=== PATIENT | female | born 1960 | race Caucasian/White ===

== ENCOUNTER 2016-10-21 17:35 | Emergency (ER) | payer MEDICARE, MEDICAID ==
[~2016-10-21] VITALS: Ht 162.6 cm; Wt 81.2 kg
[~2016-10-21 17:35] MED LIST: ATENOLOL50 M1 PO; FEROSUL325 M1 PO; NAPROSYN500 MG PO; SIMVASTATIN20 M1 PO; [UNRECOGNIZED DRUG - OTHER]
[2016-10-21 17:38] VITALS: BP 133/87
--- NOTE | 2016-10-21 19:19 | NUR ---
PT TAKEN TO BED 3
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
--- NOTE | 2016-10-21 20:06 | NUR ---
X-Ray at bedside.
[2016-10-21] MEDS ORDERED: KETOROLAC 60 MG/2 ML VIAL IM ONE (20:45)
[2016-10-21 21:13] VITALS: BP 133/87
--- NOTE | 2016-10-21 21:13 | NUR ---
Patient discharged with v/s stable. Written and verbal after care instructions given and explained. Patient verbalized understanding. Ambulatory with to home. All questions addressed prior to discharge. Advised to follow up with PMD. DISCHARGED PER DR. MARSH. WITH RX NAPROSYN.
== END 2016-10-21 21:13 | disposition home or self-care (01) ==
LOC: MED 17:35
DX: S83.91XA Sprain of unspecified site of right knee, initial encounter (principal); S93.401A Sprain of unspecified ligament of right ankle, initial encounter; I10 Essential (primary) hypertension; J45.909 Unspecified asthma, uncomplicated; W18.30XA Fall on same level, unspecified, initial encounter; Y93.89 Activity, other specified; Y92.029 Unspecified place in mobile home as the place of occurrence of the external cause; Y99.8 Other external cause status; Z88.5 Allergy status to narcotic agent
CPT/HCPCS: 73562; 73610; 96372; 99284; J1885; Q0092

== ENCOUNTER 2017-10-14 21:02 | Emergency (ER) | payer MEDICARE, MEDICAID ==
[~2017-10-14] VITALS: Ht 162.6 cm; Wt 82.8 kg
[~2017-10-14 21:02] MED LIST changes: +ATEN50TA2 PO; -ATENOLOL50 M1 PO; -FEROSUL325 M1 PO; -NAPROSYN500 MG PO; +SIMV20TA6 PO; -SIMVASTATIN20 M1 PO; -[UNRECOGNIZED DRUG - OTHER]
[2017-10-14 21:23] VITALS: BP 121/65
--- NOTE | 2017-10-15 00:02 | NUR ---
PATIENT LEFT WITHOUT BEING SEEN BY DR. PABON. NO FURTHER CARE PROVIDED FOR PATIENT.
== END 2017-10-15 00:02 | disposition left against medical advice (07) ==
LOC: MED 21:02
DX: M79.606 Pain in leg, unspecified (principal); Z53.21 Procedure and treatment not carried out due to patient leaving prior to being seen by health care provider
CPT/HCPCS: C1758

== ENCOUNTER 2018-07-17 19:07 | Emergency (ER) | payer MEDICARE, MEDICAID ==
[~2018-07-17] VITALS: Ht 162.6 cm; Wt 81.6 kg
[2018-07-17 19:20] VITALS: BP 129/85
[2018-07-17 19:24] VITALS: BP 129/85
== END 2018-07-17 20:45 | disposition left against medical advice (07) ==
LOC: MED 19:07
DX: M25.562 Pain in left knee (principal); M54.9 Dorsalgia, unspecified; Z53.21 Procedure and treatment not carried out due to patient leaving prior to being seen by health care provider

== ENCOUNTER 2018-07-24 20:19 | Emergency (ER) | payer MEDICARE, MEDICAID ==
[~2018-07-24] VITALS: Ht 162.6 cm; Wt 81.6 kg
[2018-07-24 20:27] VITALS: BP 123/78
[2018-07-24] MEDS: fentaNYL 0.05 MG/ML VIAL IVP ONE (21:57)
[2018-07-24] MEDS: ONDANSETRON 4 MG/2 ML VIAL IVP ONE (21:58)
[2018-07-24 23:01] VITALS: BP 116/75
== END 2018-07-24 23:01 | disposition home or self-care (01) ==
LOC: MED 20:19
DX: G89.29 Other chronic pain (principal); M54.9 Dorsalgia, unspecified; R11.2 Nausea with vomiting, unspecified; J45.909 Unspecified asthma, uncomplicated; I10 Essential (primary) hypertension; Z88.5 Allergy status to narcotic agent; Z79.51 Long term (current) use of inhaled steroids
CPT/HCPCS: 81002; 96374; 99283; J3010; J2405

== ENCOUNTER 2018-11-15 17:01 | Emergency (ER) | payer MEDICARE, MEDICAID ==
[~2018-11-15] VITALS: Ht 162.6 cm; Wt 79.4 kg
[2018-11-15 17:49] VITALS: BP 115/82
--- NOTE | 2018-11-15 18:10 | NUR ---
BIB SELF WITH C/O PAINFUL BURNING URINATION X 2 DAYS WITH LOWER ABDOMINAL PAIN RADIATING TO THE LT LOWER BACK AND RT PRINEAL PIMPLE PAIN. PER PT UNABLE TO SLEEP D/T ANXIETY . DENIES N/V/D; SKIN IS PINK/WARM/DRY; AAOX4 WITH EVEN AND STEADY GAIT; LUNGS CLEAR BL; HR EVEN AND REGULAR; PT DENIES ANY FEVER, CP, SOB, OR COUGH AT THIS TIME; PATIENT STATES PAIN OF 10/10 AT THIS TIME; VSS; PATIENT POSITIONED FOR COMFORT; HOB ELEVATED; BEDRAILS UP X2; BED DOWN. ER MD MADE AWARE OF PT STATUS.
[2018-11-15 18:26] LABS: APPEARANCE,URINE CLEAR (CLEAR); BILIRUBIN,URINE NEGATIVE (NEGATIVE); BLOOD, URINE 1+ (NEGATIVE); COLOR,URINE YELLOW (YELLOW); LEUKOCYTE ESTERASE ,URINE NEGATIVE (NEGATIVE); NITRITE, URINE NEGATIVE (NEGATIVE); PH,URINE 7.5 (5.0-9.0); UGLUCOSE NEGATIVE (NEGATIVE)
[2018-11-15 18:29] LABS: WBC,URINE 0-5 /HPF (0-5)
--- NOTE | 2018-11-15 19:12 | NUR ---
ENDORSED PT TO PM NURSE .
[2018-11-15 20:48] VITALS: BP 133/66
--- NOTE | 2018-11-15 20:48 | NUR ---
Patient discharged with v/s stable. Written and verbal after care instructions given and explained. Patient alert, oriented and verbalized understanding of instructions. Ambulatory with steady gait. All questions addressed prior to discharge. ID band removed. Patient advised to follow up with PMD. Rx of AMBIEN, ATENOLOL, SIMVASTATIN, BACTRIM, MOTRIN given. Patient educated on indication of medication including possible reaction and side effects. Opportunity to ask questions provided and answered.
== END 2018-11-15 20:48 | disposition home or self-care (01) ==
LOC: MED 17:01
DX: N39.0 Urinary tract infection, site not specified (principal); J45.909 Unspecified asthma, uncomplicated; I10 Essential (primary) hypertension; Z76.0 Encounter for issue of repeat prescription; Z88.5 Allergy status to narcotic agent; Z79.899 Other long term (current) drug therapy
CPT/HCPCS: 81001; 99283

== ENCOUNTER 2019-01-05 00:21 | Emergency (ER) | payer MEDICARE, MEDICAID ==
[~2019-01-05] VITALS: Ht 162.6 cm; Wt 77.1 kg
[2019-01-05 00:30] VITALS: BP 132/67
--- NOTE | 2019-01-05 00:30 | NUR ---
TO BED # 04 AMBULATORY
[2019-01-05] MEDS ORDERED: NACL 0.9% 1,000 ML IV ONE (00:50)
[2019-01-05] MEDS ORDERED: KETOROLAC 30 MG/ML VIAL IVP ONE (00:50)
--- NOTE | 2019-01-05 00:50 | NUR ---
58 Y/O F PRESENTED TO ED WITH C/O R LEG PAIN X1 DAY. 8/10 PAIN, SHARP AND CONTINOUS. PER PT, " I WAS PUTTING DOWN NEW FLOORS AND I THINK I PULLED A MUSCLE." SKIN PINK AND WARM. BILATERAL PEDAL PULSES PRESENT. BEDRAILS X2 UP. ERMD NOTIFIED. WILL CONTINUE TO MONITOR.
[2019-01-05] MEDS ORDERED: cefTRIAXone 1,000 MG VIAL ONE (01:08)
[2019-01-05 02:07] LABS: PROTHROMBIN TIME 9.6 secs (10.8-13.4)
[2019-01-05 03:15] VITALS: BP 128/64
--- NOTE | 2019-01-05 03:15 | NUR ---
Patient discharged with v/s stable. Written and verbal after care instructions given and explained. Patient alert, oriented and verbalized understanding of instructions. Ambulatory with steady gait. All questions addressed prior to discharge. ID band removed. Patient advised to follow up with PMD. Rx of T3 given. Patient educated on indication of medication including possible reaction and side effects. Opportunity to ask questions provided and answered.
== END 2019-01-05 03:15 | disposition home or self-care (01) ==
LOC: MED 00:21
DX: M54.41 Lumbago with sciatica, right side (principal); J45.909 Unspecified asthma, uncomplicated; I10 Essential (primary) hypertension; Z79.899 Other long term (current) drug therapy; Z88.5 Allergy status to narcotic agent
CPT/HCPCS: 36415; 85379; 85610; 85730; 96374; 99283; J1885; J0696

== ENCOUNTER 2019-06-16 19:57 | Emergency (ER) | payer MEDICARE, MEDICAID ==
[~2019-06-16] VITALS: Ht 162.6 cm; Wt 79.4 kg
[2019-06-16 20:05] VITALS: BP 128/89
--- NOTE | 2019-06-16 20:08 | NUR ---
TO LOBBY A/W BED AMBULATORY
--- NOTE | 2019-06-16 20:52 | NUR ---
PT TO ER BED 6
[2019-06-16] MEDS ORDERED: ALBUTEROL SULFATE/IPRATROPIU 3 ML SOL IH ONE (21:35)
[2019-06-16] MEDS ORDERED: KETOROLAC 30 MG/ML VIAL IM ONE (21:35)
--- NOTE | 2019-06-16 21:41 | NUR ---
PT TAKEN TO RAD VIA WHEELCHAIR
[2019-06-16 22:02] LABS: BASOPHILS # (AUTO) 0.1 K/uL (0.00-0.22); BASOPHILS % (AUTO) 1.8 % (0.0-2.0); EOSINOPHILS # (AUTO) 0.5 K/uL (0-0.4); EOSINOPHILS % (AUTO) 6.5 % (0.0-4.0); HEMATOCRIT 36.5 % (36-48); HEMOGLOBIN 12.1 g/dL (12.0-16.0); LYMPHOCYTES # (AUTO) 2.7 K/uL (2.5-16.5); LYMPHOCYTES % (AUTO) 34.2 % (20.5-51.1); MEAN CORPUSCULAR HEMOGLOBIN 31 pg (27-31); MEAN CORPUSCULAR HGB CONC 33 g/dL (33-37); MEAN CORPUSCULAR VOLUME 92.1 fL (80-94); MONOCYTES # (AUTO) 0.6 K/uL (0.8-1.0); MONOCYTES % (AUTO) 7.4 % (1.7-9.3); NEUTROPHILS # (AUTO) 3.9 K/uL (1.8-7.7); NEUTROPHILS % (AUTO) 50.1 % (42.2-75.2); PLATELET COUNT (AUTO) 311 K/uL (140-450); RED BLOOD CELL COUNT(AUTO) 3.96 MIL/uL (4.20-5.40); WHITE BLOOD COUNT (AUTO) 7.7 K/uL (4.8-10.8)
[2019-06-16 22:22] LABS: APPEARANCE,URINE CLEAR (CLEAR); BILIRUBIN,URINE NEGATIVE (NEGATIVE); BLOOD, URINE 2+ (NEGATIVE); COLOR,URINE YELLOW (YELLOW); LEUKOCYTE ESTERASE ,URINE TRACE (NEGATIVE); NITRITE, URINE NEGATIVE (NEGATIVE); PH,URINE 6.5 (5.0-9.0); UGLUCOSE NEGATIVE (NEGATIVE)
[2019-06-16 22:23] LABS: ANION GAP 12.2 (8-16); CARBON DIOXIDE 27.1 mmol/L (21-32); CREATININE 0.8 mg/dL (0.6-1.3); POTASSIUM 3.3 mmol/L (3.5-5.1)
[2019-06-16 22:29] LABS: ALBUMIN 3.8 g/dL (3.4-5.0); TOTAL BILIRUBIN 0.4 mg/dL (0.0-1.0)
[2019-06-16 23:30] VITALS: BP 125/81
--- NOTE | 2019-06-16 23:40 | NUR ---
PT AWAKE AND ALERT. SEATED UPRIGHT IN BED. NO C/O AT THIS TIME. WILL CONTINUE TO MONITOR.
[2019-06-16 23:48] LABS: RBC,URINE 11-20 (MOD) /HPF (0-5); WBC,URINE 0-5 /HPF (0-5)
--- NOTE | 2019-06-17 01:02 | NUR ---
Patient discharged with v/s stable. Written and verbal after care instructions given and explained. Patient alert, oriented and verbalized understanding of instructions. Ambulatory with steady gait. All questions addressed prior to discharge. ID band removed. Patient advised to follow up with PMD. Rx of pyridum, keflex, T3, and tessalon perles given. Patient educated on indication of medication including possible reaction and side effects. Opportunity to ask questions provided and answered.
== END 2019-06-17 01:02 | disposition home or self-care (01) ==
LOC: MED 19:57
DX: N39.0 Urinary tract infection, site not specified (principal); J45.909 Unspecified asthma, uncomplicated; E78.00 Pure hypercholesterolemia, unspecified; I10 Essential (primary) hypertension; Z79.899 Other long term (current) drug therapy; Z88.5 Allergy status to narcotic agent
CPT/HCPCS: 36415; 71046; 80053; 81001; 83690; 84484; 85025; 93005; 94640; 94760; 96372; 99284; J1885; J7620

== ENCOUNTER 2019-07-20 20:02 | Emergency (ER) | payer MEDICARE, MEDICAID ==
[~2019-07-20] VITALS: Ht 162.6 cm; Wt 81.2 kg
[~2019-07-20 20:02] MED LIST changes: +SIMV-30 PO; -SIMV20TA6 PO
[2019-07-20 20:05] VITALS: BP 149/72
--- NOTE | 2019-07-20 20:05 | NUR ---
TO BED # 07 AMBULATORY
[2019-07-20 20:18] VITALS: BP 149/72
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
[2019-07-20] MEDS ORDERED: ACETAMINOPHEN EXTRA STRENGTH 500 MG TAB PO ONE (20:25)
--- NOTE | 2019-07-20 20:50 | NUR ---
Patient discharged with v/s stable. Written and verbal after care instructions given and explained. Patient alert, oriented and verbalized understanding of instructions. Ambulatory with steady gait. All questions addressed prior to discharge. ID band removed. Patient advised to follow up with PMD. Rx of simvastatin, tylenol with codeine, and tylenol. given. Patient educated on indication of medication including possible reaction and side effects. Opportunity to ask questions provided and answered.
== END 2019-07-20 20:53 | disposition home or self-care (01) ==
LOC: MED 20:02
DX: S61.236A Puncture wound without foreign body of right little finger without damage to nail, initial encounter (principal); J45.909 Unspecified asthma, uncomplicated; E78.00 Pure hypercholesterolemia, unspecified; I10 Essential (primary) hypertension; W26.8XXA Contact with other sharp object(s), not elsewhere classified, initial encounter; Y93.E9 Activity, other interior property and clothing maintenance; Y92.89 Other specified places as the place of occurrence of the external cause; Y99.9 Unspecified external cause status
CPT/HCPCS: 90471; 90715; 99283

== ENCOUNTER 2019-09-07 19:05 | Emergency (ER) | payer MEDICARE, MEDICAID ==
[~2019-09-07] VITALS: Ht 162.6 cm; Wt 52.2 kg
[2019-09-07 19:35] LABS: BASOPHILS # (AUTO) 0.1 K/uL (0.00-0.22); BASOPHILS % (AUTO) 1.1 % (0.0-2.0); EOSINOPHILS # (AUTO) 0.6 K/uL (0-0.4); EOSINOPHILS % (AUTO) 7.2 % (0.0-4.0); HEMATOCRIT 38.2 % (36-48); HEMOGLOBIN 12.7 g/dL (12.0-16.0); LYMPHOCYTES # (AUTO) 2.2 K/uL (2.5-16.5); LYMPHOCYTES % (AUTO) 26.6 % (20.5-51.1); MEAN CORPUSCULAR HEMOGLOBIN 31 pg (27-31); MEAN CORPUSCULAR HGB CONC 33 g/dL (33-37); MONOCYTES # (AUTO) 0.5 K/uL (0.8-1.0); MONOCYTES % (AUTO) 5.5 % (1.7-9.3); NEUTROPHILS # (AUTO) 4.9 K/uL (1.8-7.7); NEUTROPHILS % (AUTO) 59.6 % (42.2-75.2); PLATELET COUNT (AUTO) 293 K/uL (140-450); RED BLOOD CELL COUNT(AUTO) 4.11 MIL/uL (4.20-5.40); RED CELL DISTRIBUTION WIDTH 13.1 % (11.6-13.7); WHITE BLOOD COUNT (AUTO) 8.2 K/uL (4.8-10.8)
[2019-09-07 19:45] LABS: ANION GAP 10.9 (8-16); CARBON DIOXIDE 31.1 mmol/L (21-32); CREATININE 0.9 mg/dL (0.6-1.3)
[2019-09-07 19:51] VITALS: BP 150/87
[2019-09-07 19:51] LABS: ALBUMIN 3.8 g/dL (3.4-5.0); TOTAL BILIRUBIN 0.3 mg/dL (0.0-1.0)
--- NOTE | 2019-09-07 19:51 | NUR ---
59 Y/O FEMALE BIB SELF FOR CONGESTION AND COUGH FOR 3 WEEKS. PAIN IS A 5/10. DENIES FEVER; + CHILLSL; DENIES N/V/D. DIMINISHED BREATH SOUNDS HEARD IN THE BASES. PRODUCTIVE COUGH WITH YELLOW SPUTUM. ERMD MADE AWARE OF STATUS. SIDE RAILSX1. WILL CONTINUE TO MONITOR. VSS. PMHl ASTHMAL HTN; HIGH CHOLESTEROL MEDS:TYLENOL ALLERGIES: HYDROCODONE
--- NOTE | 2019-09-07 19:52 | NUR ---
VSS. RETURNED TO LOBBY FOR BED IN ED.
--- NOTE | 2019-09-07 21:09 | NUR ---
PT AMBULATED TO BED 5
--- NOTE | 2019-09-07 21:16 | NUR ---
Dr. Gonzalez examining patient.
--- NOTE | 2019-09-07 21:16 | NUR ---
EKG PERFORMED AT BEDSIDE
[2019-09-07] MEDS ORDERED: ALBUTEROL SULFATE/IPRATROPIU 3 ML SOL IH ONE (21:20)
--- NOTE | 2019-09-07 21:23 | NUR ---
FLU SWAB COLLECTED AND SENT TO LAB
--- NOTE | 2019-09-07 21:43 | NUR ---
RT AT BEDSIDE FOR TREATMENT.
[2019-09-07] MEDS ORDERED: FLUCONAZOLE 100 MG TAB PO ONE (22:50)
[2019-09-07 23:07] VITALS: BP 130/81
--- NOTE | 2019-09-07 23:07 | NUR ---
Patient discharged with v/s stable. Written and verbal after care instructions given and explained. Patient alert, oriented and verbalized understanding of instructions. Ambulatory with steady gait. All questions addressed prior to discharge. ID band removed. Patient advised to follow up with PMD. Rx of PREDNISONE; ALBUTEROL; TYLENOL given. Patient educated on indication of medication including possible reaction and side effects. Opportunity to ask questions provided and answered.
== END 2019-09-07 23:07 | disposition home or self-care (01) ==
LOC: MED 19:05
DX: J45.909 Unspecified asthma, uncomplicated (principal); I10 Essential (primary) hypertension; E78.00 Pure hypercholesterolemia, unspecified; Z79.899 Other long term (current) drug therapy; Z88.5 Allergy status to narcotic agent
CPT/HCPCS: 36415; 71046; 80053; 83880; 84484; 85025; 87804; 93005; 94640; 99284; J7620